=== PATIENT | male | born 1990 | race Caucasian/White ===

== ENCOUNTER 2017-10-11 12:29 | Emergency (ER) | payer OTHER ==
[~2017-10-11] VITALS: Ht 175.3 cm; Wt 95.5 kg
[2017-10-11 12:31] VITALS: TEMP 98.9
[2017-10-11 13:15] LABS: BASO # 0.1 (0.0-0.2); BASO % 0.8 % (0.0-2.0); EOS # 0.2 (0.0-0.7); GRAN # 5.8 (1.4-6.5); GRAN % 64.8 % (42.2-75.2); HEMATOCRIT 46.5 % (42.0-52.0); HEMOGLOBIN 15.6 g/dl (13.5-18.0); LYMPH # 2.2 (1.2-3.4); LYMPH % 24.5 % (20.0-51.0); MEAN CELL VOLUME 84 fl (80.0-100.0); MEAN CORPUSCULAR HEMOGLOBIN 28 pg (27.0-31.0); MEAN CORPUSCULAR HGB CONC 34 g/dl (33.0-37.0); MEAN PLATELET VOLUME 8.9 fl (7.4-10.4); MONO # 0.6 (0.1-0.6); MONO % 7.2 % (1.7-9.3); PLATELET COUNT 417 K/mm3 (130-400); RED BLOOD COUNT 5.52 M/mm3 (4.20-5.60); REDCELL DISTRIBUTION WIDTH-CV 12.7 % (11.5-14.5)
[2017-10-11] MEDS ORDERED: ALDACTONE 100M100 MG PO (13:18)
[2017-10-11] MEDS ORDERED: VISTARIL 2525 MG/CAP PO (13:18)
[2017-10-11] MEDS ORDERED: GLUCOPHAGE500 MG/TAB PO (13:18)
[2017-10-11] MEDS ORDERED: ESTRACE2 MG PO (13:19)
[2017-10-11 13:28] LABS: COLLECTION METHOD CLEAN CATCH
[2017-10-11 13:31] LABS: ALANINE AMINOTRANSFERASE 50 U/L (21-72); ALBUMIN 4.4 gm/dL (3.5-5.0); ALKALINE PHOSPHATASE 78 U/L (50-136); ANION GAP 16 mmol/L (7-16); AST,SGOT 30 U/L (15-37); BILIRUBIN,TOTAL 0.3 mg/dL (0.0-1.0); BLOOD UREA NITROGEN 16 mg/dL (9-20); CALCIUM 9.7 mg/dL (8.4-10.2); CARBON DIOXIDE 19 mmol/L (22-30); CHLORIDE 107 mmol/L (98-107); GLUCOSE 143 mg/dL (74-106); POTASSIUM 4.5 mmol/L (3.4-5.0); SODIUM 141 mmol/L (137-145)
[2017-10-11 13:34] LABS: ACETAMINOPHEN < 10 ug/mL (10-30); ALCOHOL(ethanol),MEDICAL < 10 mg/dL; SALICYLATE < 1.0 mg/dL
[2017-10-11 13:37] LABS: MUCOUS Present /lpf; PH 5 (5-8); SQUAMOUS EPITHELIAL 0-2 /hpf; URINE APPEARANCE Clear; URINE BACTERIA None Seen /hpf; URINE BILIRUBIN Negative (NEGATIVE); URINE BLOOD 1+ (NEGATIVE); URINE COLOR Yellow; URINE GLUCOSE Negative (NEGATIVE); URINE KETONE Trace (NEGATIVE); URINE LEUKOCYTE ESTERASE Negative (NEGATIVE); URINE NITRATE Negative (NEGATIVE); URINE PROTEIN(semi-quant) Negative (NEGATIVE); URINE RBC 0-2 /hpf; URINE UROBILINOGEN Negative (NEGATIVE)
[2017-10-11 13:43] LABS: TRICYCLIC ANTIDEPRESS URINE NEGATIVE
[2017-10-11 15:01] VITALS: BP 147/83; PULSE 90
== END 2017-10-11 15:01 | disposition home or self-care (01) ==
LOC: COL.ER 12:29
PROVIDERS: Physician Assistant
DX: F32.9 Major depressive disorder, single episode, unspecified (principal); F41.9 Anxiety disorder, unspecified; Z79.84 Long term (current) use of oral hypoglycemic drugs

== ENCOUNTER 2018-01-05 07:57 | Emergency (ER) | payer SELFPAY ==
[~2018-01-05] VITALS: Ht 177.8 cm; Wt 106.8 kg
[~2018-01-05 07:57] MED LIST: ALDACTONE 100M100 MG PO; ESTRACE2 MG PO; GLUCOPHAGE500 MG/TAB PO; VISTARIL 2525 MG/CAP PO
[2018-01-05 08:07] VITALS: BP 123/73; TEMP 98
[2018-01-05] MEDS ORDERED: PROVERA 2.5MG2.5 MG PO (08:12)
[2018-01-05] MEDS ORDERED: TOPROL XL 25MG25 MG PO (08:13)
[2018-01-05] MEDS ORDERED: AMOXICILLIN875 MG PO (08:27)
[2018-01-05 08:59] VITALS: PULSE 78
== END 2018-01-05 09:00 | disposition home or self-care (01) ==
LOC: COL.ER 07:57
DX: J02.9 Acute pharyngitis, unspecified (principal); Z79.84 Long term (current) use of oral hypoglycemic drugs